=== PATIENT | female | born 1995 | race Caucasian/White ===

== ENCOUNTER 2025-09-15 14:17 | Outpatient (CLI) | payer BC, SELFPAY ==
[2025-09-18 09:48] LABS: HPV Source Cervical
[2025-09-18 17:55] LABS: HPV Genotype 16 by TMA Not Detected; HPV Genotype 18/45 by TMA Not Detected
[2025-09-27 08:37] LABS: Pap Test Screened Manually Done
== END 2025-09-15 14:18 | disposition home or self-care (01) ==
PROVIDERS: Visit Provider Obstetrics & Gynecology
DX: Z12.4 Encounter for screening for malignant neoplasm of cervix (principal)
CPT/HCPCS: 87624; 87625; 88141; 88142; 88175